=== PATIENT | male | born 2000 | race African-American/Black ===

== ENCOUNTER 2023-11-23 21:42 | Emergency (ER) | payer OTHER ==
[~2023-11-23] VITALS: Ht 170.2 cm; Wt 79.9 kg
[2023-11-23] MEDS: KETOROLAC 60MG 2ML VIAL IM ONE (22:56)
[2023-11-23 23:31] LABS: Trichomonas vaginalis (AMP) NOT DETECTED (NEGATIVE)
[2023-11-23 23:55] LABS: GC DNA AMPLIFICATION POSITIVE (NEGATIVE)
[2023-11-24] MEDS ORDERED: NAPR-837 PO (01:21)
[2023-11-24] MEDS: LIDOCAINE 1% SDV 5ML VIAL DILUENT ONE (01:35)
[2023-11-24] MEDS: cefTRIAXone SOD 1GM VIAL IM ONE (01:35)
[2023-11-24 01:42] VITALS: BP 130/65; TEMP 97.5; O2SAT 100
== END 2023-11-24 01:49 | disposition home or self-care (01) ==
LOC: M ED 21:42
DX: A54.23 Gonococcal infection of other male genital organs (principal); N45.3 Epididymo-orchitis; Z79.1 Long term (current) use of non-steroidal anti-inflammatories (NSAID)
CPT/HCPCS: 76870; 81001; 87086; 87661; 87810; 87850; 93976; 96372; 99283; J0696; J1885